=== PATIENT | female | born 1965 | race Caucasian/White ===

== ENCOUNTER 2020-09-18 13:17 | Outpatient (CLI) | payer OTHER, SELFPAY ==
--- NOTE | 2020-09-18 15:00 | NEURO_ITS ---
Impression: # Complains of paresthesia of both hands. # Bilateral Carpal Tunnel Syndrome, right more than left. # No ulnar neuropathy. # Needle/EMG exam not requested. Nerve Conduction Studies Anti Sensory Summary Table Stim Site NR Peak (ms) P-T Amp (?V) Site1 Site2 Delta-P (ms) Dist (cm) Fabrice (m/s) Left Median Anti Sensory (2-3nd Digit) Wrist 3.2 58.4 Wrist 2-3nd Digit 3.2 14.0 44 Wrist 3.3 59.8 Wrist 2-3nd Digit 3.2 14.0 44 Right Median Anti Sensory (2-3nd Digit) Wrist 4.1 32.0 Wrist 2-3nd Digit 4.1 14.0 34 Wrist 4.3 26.1 Wrist 2-3nd Digit 4.1 14.0 34 Left Radial Anti Sensory (Base 1st Digit) Wrist 1.8 14.8 Wrist Base 1st Digit 1.8 0.0 Right Radial Anti Sensory (Base 1st Digit) Wrist 1.8 20.3 Wrist Base 1st Digit 1.8 0.0 Left Ulnar Anti Sensory (5th Digit) Wrist 2.4 73.6 Wrist 5th Digit 2.4 14.0 58 Right Ulnar Anti Sensory (5th Digit) Wrist 2.1 61.3 Wrist 5th Digit 2.1 14.0 67 Motor Summary Table Stim Site NR Onset (ms) O-P Amp (mV) Site1 Site2 Delta-0 (ms) Dist (cm) Fabrice (m/s) Left Median Motor (Abd Poll Brev) Wrist 3.7 3.3 Elbow Wrist 5.7 33.0 58 Elbow 9.4 1.9 Right Median Motor (Abd Poll Brev) Wrist 4.5 2.9 Elbow Wrist 5.2 29.0 56 Elbow 9.7 2.6 Left Ulnar Motor (Abd Dig Minimi) Wrist 2.3 5.6 A Elbow Wrist 5.3 31.0 58 A Elbow 7.6 4.8 Right Ulnar Motor (Abd Dig Minimi) Wrist 2.6 5.3 A Elbow Wrist 5.3 29.0 55 A Elbow 7.9 4.7 F Wave Studies NR F-Lat (ms) L-R F-Lat (ms) Left Median (Mrkrs) (Abd Poll Brev) 28.88 0.20 Right Median (Mrkrs) (Abd Poll Brev) 28.67 0.20 Left Ulnar (Mrkrs) (Abd Dig Min) 28.69 0.25 Right Ulnar (Mrkrs) (Abd Dig Min) 28.95 0.25 MTDD
== END 2020-09-18 13:18 | disposition home or self-care (01) ==
PROVIDERS: PCP Family Medicine Adolescent Medicine; Visit Provider Family Medicine Adolescent Medicine
DX: R20.2 Paresthesia of skin (principal); G56.03 Carpal tunnel syndrome, bilateral upper limbs
CPT/HCPCS: 95911

== ENCOUNTER 2020-12-17 11:51 | Outpatient (CLI) | payer MEDICARE, MEDICAID, SELFPAY ==
--- NOTE | ~2020-12-17 | XR_ITS ---
EXAMINATION: XR knee LT min 4V DATE: 12/17/2020 12:14 INDICATION: Left knee pain. TECHNIQUE: 4 views of left knee were obtained. COMPARISON: Left knee radiographs 02/27/2013 FINDINGS: There is varus angulation at the knee. No fracture. There is severe osteoarthritis of media l compartment and mild osteoarthritis of lateral and patellofemoral compartments. There is a moderate -sized knee joint effusion. IMPRESSION: 1. Severe left knee osteoarthritis. 2. Moderate-sized left knee joint effusion. Reviewed, dictated and finalized at location A. OTECHNOLOGIST SUPERVISOR
--- NOTE | ~2020-12-17 | XR_ITS ---
EXAMINATION: XR knee RT min 4V DATE: 12/17/2020 12:14 INDICATION: Right knee pain. TECHNIQUE: 4 views of right knee were obtained. COMPARISON: None. FINDINGS: Bone alignment is normal. No fracture. There is mild tricompartmental osteoarthritis. No kn ee joint effusion. IMPRESSION: 1. Mild right knee osteoarthritis. Reviewed, dictated and finalized at location A. [employer] TECHNICIAN
== END 2020-12-17 11:52 | disposition home or self-care (01) ==
LOC: ANHIMG 11:57
PROVIDERS: PCP Family Medicine Adolescent Medicine; Visit Provider Family Medicine Adolescent Medicine
DX: M17.0 Bilateral primary osteoarthritis of knee (principal); M25.462 Effusion, left knee
CPT/HCPCS: 73564

== ENCOUNTER 2021-11-26 16:18 | Emergency (ER) | payer MEDICARE, MEDICAID, SELFPAY ==
--- NOTE | 2021-11-26 16:23 | ED.URI ---
HPI - URI/Sore Throat General Chief Complaint: Upper Respiratory Infection Stated Complaint: Flu sx/Ear pain Time Seen by Provider: 11/26/21 16:23 Source: patient, family, RN notes reviewed and old records reviewed Mode of arrival: ambulatory Limitations: no limitations History of Present Illness HPI Narrative: 55-year-old female presents to the [facility] with complaints of left ear pain for 3 weeks, sore throat for a couple of days with cough and nasal congestion MD elicited complaint: cough, sore throat and nasal congestion Related Data Home Medications Medication Instructions Recorded Confirmed escitalopram oxalate 20 mg tablet 20 mg PO DAILY 07/16/21 11/26/21 Allergies Allergy/AdvReac Type Severity Reaction Status Date / Time No Known Allergies Verified 07/16/21 13:42 Review of Systems Review of Systems: All systems reviewed & are unremarkable except as noted in HPI and below Constitutional: Constitutional: Reports no additional constitutional complaints, Denies chills, Denies fever(s) and Denies headache(s) Eyes: Eyes: Reports no additional eye complaints ENT: Reports as per HPI, Denies vertigo, Denies dizziness, Denies headache(s), Reports nasal congestion and Reports sore throat Comments: left ear pain Cardiovascular: Cardiovascular: Reports no additional cardiovascular complaints, Denies chest pain, Denies syncope, Denies rapid heart rate and Denies dyspnea Respiratory: Respiratory: Reports as per HPI, Reports cough, Denies dyspnea and Denies wheezing Gastrointestinal: Gastrointestinal: Reports no additional gastrointestinal complaints, Denies abdominal pain, Denies diarrhea, Denies nausea and Denies vomiting Musculoskeletal: Musculoskeletal: Reports no additional musculoskeletal complaints and Denies numbness Integumentary/Breasts: Skin/Breast: Reports system reviewed and no additional complaints, except as docu Neurologic: Reports system reviewed and no additional complaints, except as documented, Denies vertigo, Denies dizziness, Denies syncope, Denies headache(s), Denies focal weakness and Denies numbness Psychiatric: Psychiatric: Reports no additional psychiatric complaints Allergic/Immunologic: Allergic/Immunologic: Reports no additional allergic/immunologic complaints and Denies wheezing PMFSH Past Medical History Medical History BMI 40.0-44.9, adult Degenerative arthritis of knee, bilateral Family History Family History Mother Hypertension Diabetes mellitus Heart disease Cancer Father Hypertension Heart disease Social History Social History Smoking packs per day: 1 Smoking cigarettes per day: 20.0 Smoking status: Current every day smoker Alcohol intake: never Substance use: never Gender identity (if verbalized by the patient): Female Comments At the time of my signature, I reviewed and agree with the nursing past medical, surgical, social, and family history. There is no relevant family history pertinent to the patient complaint. Exam Const: General: cooperative, no acute distress, well developed, alert and ill appearing chronically; not acutely Nutritional Appearance: well nourished Orientation/consciousness: patient oriented x3 Limitations: no limitations HENMT: Head: normal to inspection Ears: external ears normal, EAC's normal and TM abnormal bulging on the left and erythematous on the left Mouth: Yes lip normal Eyes: Conjunctivae: conjunctivae normal Pupils: Equal, round and reactive pupils present Neck: Neck: normal visual inspection, no lymphadenopathy and no meningeal signs Chest: Chest palpation & inspection: normal inspection of the chest Resp: Effort & Inspection: normal respiratory effort and no use of accessory muscles Auscultation: clear to auscultation bilaterally, no crackles, no rales, no rhonch
[2021-11-26 16:27] VITALS: BP 133/96; PULSE 95; RESP 18; TEMP 36.2; O2SAT 98
== END 2021-11-26 16:38 | disposition home or self-care (01) ==
PROVIDERS: Emergency Provider Nurse Practitioner; PCP Family Medicine Adolescent Medicine
DX: H66.92 Otitis media, unspecified, left ear (principal); J40 Bronchitis, not specified as acute or chronic; F17.210 Nicotine dependence, cigarettes, uncomplicated; M17.0 Bilateral primary osteoarthritis of knee
CPT/HCPCS: 99213; G0463

== ENCOUNTER 2022-02-24 10:59 | Outpatient (CLI) | payer MEDICARE, MEDICAID, SELFPAY | END 2022-02-24 11:00 | disposition home or self-care (01) | LOC: ANHAUDIO 11:00 | PROVIDERS: PCP Family Medicine Adolescent Medicine; Visit Provider Otolaryngology | DX: H67.2 Otitis media in diseases classified elsewhere, left ear (principal); H72.92 Unspecified perforation of tympanic membrane, left ear | CPT/HCPCS: 92557; 92567 ==